=== PATIENT | female | born 1950 | race Caucasian/White ===

== ENCOUNTER → 2017-09-11 09:38 | Outpatient (CLI) | payer MEDICARE, BC, SELFPAY ==
--- NOTE | 2017-09-11 09:51 | XR_ITS ---
EXAM: XR lumbar spine 2-3V HISTORY: ITS.REASON: LOW BACK PAIN ORDERING PHYSICIAN: Jonn Fishman PATIENT AGE: 66 years COMPARISON: 12/08/2015 FINDINGS: Study is very limited as the patient could not lie flat and had to be done in the patient will care. The lumbosacral junction is not well delineated and the AP view is underpenetrated. On the lateral view there is normal alignment from L1 to L5 with no obvious acute fracture. Frontal view is very limited with mild lumbar curvature convex left. Cannot exclude underlying bony lesions on the frontal view. IMPRESSION: Very limited exam as described above with normal alignment from L1 to L5 and mild lumbar curvature convex left Consider repeating exam when patient can lie down for the exam
== END ==
PROVIDERS: PCP Family Medicine; Visit Provider Neurological Surgery
DX: M54.5 Low back pain (principal)
CPT/HCPCS: 72100

== ENCOUNTER 2017-09-22 19:29 | Emergency (ER) | payer MEDICARE, BC, SELFPAY ==
[2017-09-22 19:29] VITALS: BP 155/87; PULSE 78; RESP 20; TEMP 36.6; O2SAT 96; BMI 38.2
--- NOTE | 2017-09-22 19:39 | XR_ITS ---
XR chest 2V HISTORY: ITS.REASON: WEAKNESS ORDERING PHYSICIAN: Bhakti Schaeffer MD PATIENT AGE: 66 years COMPARISON: 12 or 15 FINDINGS: The cardiomediastinal silhouette and pulmonary vascularity are within normal limits. The lungs are clear without infiltrates, suspicious nodules, or pleural effusions. No acute bony abnormalities. IMPRESSION: No change with no acute finding
[2017-09-22 20:09] LABS: Microscopic, Urine URINE MICROSCOPIC (MICROSCOPIC)
[2017-09-22 20:11] LABS: Appearance,Urine CLEAR (Clear); Blood, Urine Negative (Negative); Color,Urine YELLOW (Yellow); Glucose,Urine (UA) Negative (Negative); Ketones,Urine TRACE (Negative); Leukocyte Esterase,Urine Negative (Negative); Nitrate,Urine Negative (Negative); Protein,Urine Negative (Negative); Specific Gravity, Urine 1.025 (1.005-1.030); Urobilinogen,Urine 0.2 EU/dl (0.2)
[2017-09-22 20:12] LABS: Basophils % 0.3 % (0.1-2.0); Eosinophils # 0.3 K/mm3 (0.0-0.4); Eosinophils % 4.9 % (0.1-12.0); Hematocrit 44.9 % (37.0-47.0); Hemoglobin 13.3 g/dL (12.2-16.2); Lymphocytes # 0.7 K/mm3 (0.7-4.5); Lymphocytes % 12.8 K/mm3 (10-50); Mean Corpuscular HGB Conc 29.7 g/dL (31.8-35.4); Mean Corpuscular Hemoglobin 28.9 pg (27.0-31.2); Mean Corpuscular Volume 97.3 fl (81-99); Mean Platelet Volume 7.1 fl (7.4-10.4); Monocytes # 0.4 K/mm3 (0.1-1.0); Monocytes % 7.5 % (1.7-9.3); Neutrophils # 3.8 K/mm3 (1.8-7.8); Neutrophils % 74.4 % (37.0-80.0); Platelet Count 310 K/mm3 (142-424); Red Blood Count 4.62 M/mm3 (4.20-5.40); Red Cell Distribution Width 14.3 % (11.5-17.5); White Blood Count 5.1 K/mm3 (4.8-10.8)
[2017-09-22 20:19] LABS: Amorphous Sediment,Urine Trace /lpf; Bilirubin,Urine Negative (Negative); Mucus,Urine 4+ /lpf
[2017-09-22 20:26] LABS: Lactic Acid 0.9 mmol/L (0.4-2.0)
--- NOTE | 2017-09-22 20:26 | PC.NURSE ---
pt reports to dr. becerril that she is just here to be transferred to .
[2017-09-22 20:31] LABS: Alanine Aminotransferase 20 U/L (12-78); Albumin Level 3.2 gm/dL (3.4-5.0); Albumin/Globulin Ratio 0.8 (1.1-1.8); Alkaline Phosphatase 87 U/L (46-116); Anion Gap 7.6 mEq/L (5-15); Aspartate Amino Transferase 16 U/L (15-37); Bilirubin,Total 0.4 mg/dL (0.2-1.0); Blood Urea Nitrogen 14 mg/dL (7-18); Carbon Dioxide 33 mmol/L (21.0-32.0); Chloride 103 mmol/L (98-107); Creatine Kinase 101 U/L (26-192); Creatinine Clearance Estimated 94 mL/min (0-300); Creatinine,Serum 0.38 mg/dL (0.55-1.02); Estimated Glomerular Filt Rate 170 ml/min (>60); GFR (African American) 206 ML/MIN (>60); Glucose 106 mg/dL (74-106); Potassium 3.6 mmoL/L (3.5-5.1); Sodium 140 mmol/L (136-145); Total Protein,Serum 7.2 gm/dL (6.4-8.2); Troponin I < 0.02 ng/ml (0.00-0.06)
--- NOTE | 2017-09-22 20:32 | [facility].EDWEAK ---
ED Disposition Clinical Impression: Weakness generalized Disposition: Home, Self-Care Condition on Discharge: Good Additional Instructions: call your neuro and pcp in am Prescriptions: Ketorolac Tromethamine [Toradol 10mg tablet] 10 mg PO Q6H 5 Days #20 tab Referrals: Norm Solis MD [Primary Care Provider] - - Critical Care Critical Care Time: No Attestation: On 09/22/17, the high probability of a clinically significant, sudden or life threatening deterioration of the following system(s) required my full and direct attention, intervention and personal management. The time I documented below is in addition to time spent performing reported procedures but includes the following listed in this critical care notation. Medical Decision Making - Medical Records Medical records reviewed: Yes: I reviewed the patient's medical records. - Jacek Inquiry Pt receiving controlled substance: No Vital Signs: 09/22/17 19:29 Temperature 97.9 F Temperature Source Oral Pulse Rate [Right Radial] 78 Respiratory Rate 20 Blood Pressure [Right Arm] 155/87 Blood Pressure Mean [Right Arm] 109 02 Sat by Pulse Oximetry 96 - Lab Data Lab results reviewed: Yes: I reviewed the patient's lab results. Lab Results 09/22/17 20:00: Urine Color Yellow, Urine Appearance Clear, Urine pH 6.0, Ur Specific [place] 1.025, Urine Protein Negative, Urine Glucose (UA) Negative, Urine Ketones Trace, Urine Blood Negative, Urine Nitrate Negative, Urine Bilirubin Negative, Urine Urobilinogen 0.2, Ur Leukocyte Esterase Negative, Urine WBC 3-5, Ur Squamous Epith Cells 3-5, Amorphous Sediment Trace, Urine Mucus 4+ 09/22/17 20:00: WBC 5.1, RBC 4.62, Hgb 13.3, Hct 44.9, MCV 97.3, MCH 28.9, MCHC 29.7 L, RDW 14.3, Plt Count 310, MPV 7.1 L, Neut % (Auto) 74.4, Lymph % (Auto) 12.8, [place] % (Auto) 7.5, Eos % (Auto) 4.9, Baso % (Auto) 0.3, Neut # (Auto) 3.8, Lymph # (Auto) 0.7, [place] # (Auto) 0.4, Eos # (Auto) 0.3, Baso # (Auto) 0.0 09/22/17 20:00: Sodium 140, Potassium 3.6, Chloride 103, Carbon Dioxide 33 H, Anion Gap 7.6, BUN 14, Creatinine 0.38 L, Estimated Creat Clear 94, Estimated GFR 170, Est GFR ( Amer) 206, Glucose 106, Calcium 9.0, Total Bilirubin 0.4, AST 16, ALT 20, Alkaline Phosphatase 87, Total Creatine Kinase 101, CK-MB (CK-2) 3.4, CK-MB (CK-2) Rel Index 3.4, Troponin I < 0.02, Total Protein 7.2, Albumin 3.2 L, Globulin 4.0 H, Albumin/Globulin Ratio 0.8 L 09/22/17 20:00: Lactic Acid 0.9 09/22/17 20:00: ESR 24 09/22/17 20:00: C-Reactive Protein < 0.2, TSH 1.83, Thyroxine (T4) 12.5 09/22/17 20:00: D-Dimer 1270 H* Result diagrams: 09/22/17 20:00 09/22/17 20:00 Orders (Tests/Meds): ED MEDICATIONS Discontinued Medications Generic Name Dose Route Start Last Admin Trade Name Freq PRN Reason Stop Dose Admin Iopamidol 70 ml 09/22/17 23:10 09/22/17 23:11 [id number]; 75ml Vial IV 09/22/17 23:11 70 ml ONCE ONE Administration Ketorolac Tromethamine 30 mg 09/22/17 21:57 09/22/17 22:04 Toradol 30mg/Ml Vial IV 09/22/17 21:58 30 mg ONCE ONE Administration Sodium Chloride 10 ml 09/22/17 23:10 09/22/17 23:11 Rad-Saline Flush 10ml Syringe IV 09/22/17 23:11 10 ml ONCE ONE Administration Sodium Chloride 40 ml 09/22/17 23:10 09/22/17 23:11 Rad-Ns 50ml Vial IV 09/22/17 23:11 40 ml ONCE ONE Administration ORDERS Category Date Time Status CT Chest w/PE protocol [CT angio chest] Stat Cat Scan 09/22/17 21:[address] head/brain wo con Stat Cat Scan 09/22/17 19:39 Stop Req CXR --portable [XR chest portable] Stat Exams 09/22/17 20:35 Stop Req Blood Culture Stat Micro 09/22/17 20:00 Received - Radiology Data #1 Image(s): Chest Image Reviewed: Yes I reviewed the patient's radiology image Preliminary Findings: Normal/NAD - CT Data CT Scan: Chest Time Received: 00:[address] Reviewed: Yes: I have viewed the radiologist's interpretation Preliminary Findings: Normal/NAD -
--- NOTE | 2017-09-22 20:35 | ED_ITS ---
ED Disposition Clinical Impression: Weakness generalized Disposition: Home, Self-Care Condition on Discharge: Good Additional Instructions: call your neuro and pcp in am Prescriptions: Ketorolac Tromethamine [Toradol 10mg tablet] 10 mg PO Q6H 5 Days #20 tab Referrals: Norm Solis MD [Primary Care Provider] - - Critical Care Critical Care Time: No Attestation: On 09/22/17, the high probability of a clinically significant, sudden or life threatening deterioration of the following system(s) required my full and direct attention, intervention and personal management. The time I documented below is in addition to time spent performing reported procedures but includes the following listed in this critical care notation. Medical Decision Making - Medical Records Medical records reviewed: Yes: I reviewed the patient's medical records. - Jacek Inquiry Pt receiving controlled substance: No Vital Signs: 09/22/17 19:29 Temperature 97.9 F Temperature Source Oral Pulse Rate [Right Radial] 78 Respiratory Rate 20 Blood Pressure [Right Arm] 155/87 Blood Pressure Mean [Right Arm] 109 02 Sat by Pulse Oximetry 96 - Lab Data Lab results reviewed: Yes: I reviewed the patient's lab results. Lab Results 09/22/17 20:00: Urine Color Yellow, Urine Appearance Clear, Urine pH 6.0, Ur Specific [place] 1.025, Urine Protein Negative, Urine Glucose (UA) Negative, Urine Ketones Trace, Urine Blood Negative, Urine Nitrate Negative, Urine Bilirubin Negative, Urine Urobilinogen 0.2, Ur Leukocyte Esterase Negative, Urine WBC 3-5, Ur Squamous Epith Cells 3-5, Amorphous Sediment Trace, Urine Mucus 4+ 09/22/17 20:00: WBC 5.1, RBC 4.62, Hgb 13.3, Hct 44.9, MCV 97.3, MCH 28.9, MCHC 29.7 L, RDW 14.3, Plt Count 310, MPV 7.1 L, Neut % (Auto) 74.4, Lymph % (Auto) 12.8, [place] % (Auto) 7.5, Eos % (Auto) 4.9, Baso % (Auto) 0.3, Neut # (Auto) 3.8 , Lymph # (Auto) 0.7, [place] # (Auto) 0.4, Eos # (Auto) 0.3, Baso # (Auto) 0.0 09/22/17 20:00: Sodium 140, Potassium 3.6, Chloride 103, Carbon Dioxide 33 H, Anion Gap 7.6, BUN 14, Creatinine 0.38 L, Estimated Creat Clear 94, Estimated GFR 170, Est GFR ( Amer) 206, Glucose 106, Calcium 9.0, Total Bilirubin 0.4, AST 16, ALT 20, Alkaline Phosphatase 87, Total Creatine Kinase 101, CK-MB ( CK-2) 3.4, CK-MB (CK-2) Rel Index 3.4, Troponin I < 0.02, Total Protein 7.2, Albumin 3.2 L, Globulin 4.0 H, Albumin/Globulin Ratio 0.8 L 09/22/17 20:00: Lactic Acid 0.9 09/22/17 20:00: ESR 24 09/22/17 20:00: C-Reactive Protein < 0.2, TSH 1.83, Thyroxine (T4) 12.5 09/22/17 20:00: D-Dimer 1270 H* Result diagrams: 09/22/17 20:00 09/22/17 20:00 Orders (Tests/Meds): ED MEDICATIONS Discontinued Medications Generic Name Dose Route Start Last Admin Trade Name Freq PRN Reason Stop Dose Admin Iopamidol 70 ml 09/22/17 23:10 09/22/17 23:11 [id number]; 75ml Vial IV 09/22/17 23:11 70 ml ONCE ONE Administration Ketorolac Tromethamine 30 mg 09/22/17 21:57 09/22/17 22:04 Toradol 30mg/Ml Vial IV 09/22/17 21:58 30 mg ONCE ONE Administration Sodium Chloride 10 ml 09/22/17 23:10 09/22/17 23:11 Rad-Saline Flush 10ml Syringe IV 09/22/17 23:11 10 ml ONCE ONE Administration Sodium Chloride 40 ml 09/22/17 23:10 09/22/17 23:11 Rad-Ns 50ml Vial IV 09/22/17 23:11 40 ml ONCE ONE Administration ORDERS
[2017-09-22 21:10] LABS: CKMB Relative Index 3.4 U/L (0-4.0); Creatine Kinase MB 3.4 ng/ml (0.0-3.6)
[2017-09-22 21:11] LABS: T4 (Thyroxine) 12.5 ug/dl (4.7-13.3); Thyroid Stimulating Hormone 1.83 uIU/ml (0.358-3.740)
[2017-09-22 21:12] LABS: C-Reactive Protein < 0.2 mg/L (0.0-0.9)
[2017-09-22 21:32] LABS: D-Dimer 1270 (0-400)
--- NOTE | 2017-09-22 21:32 | PC.NURSE ---
elevated ddimer reported to dr. becerril at this time. awaiting further orders.
--- NOTE | 2017-09-22 21:55 | CT_ITS ---
CT angio chest HISTORY: Shortness of breath ITS.REASON: sob ORDERING PHYSICIAN: Bhakti Schaeffer MD PATIENT AGE: 66 years TECHNIQUE: Axial images obtained following the administration of 75 mL of Isovue 370 . Sagittal, and coronal reformatted images are also generated and reviewed. All CT scans at the facility use one or more dose reduction, viz: automated exposure control; ma/kV adjustment per patient size (including targeted exams where dose is matched to indication; i.e. head); or iterative reconstruction technique. COMPARISON: None FINDINGS: No mediastinal or hilar mass or adenopathy. No evidence of pulmonary embolus or aortic aneurysm. The pulmonary arteries are somewhat prominent with a pulmonary artery aorta ratio of slightly greater than 1. There is borderline cardiomegaly. No lobar consolidation or collapse. Respiratory motion artifact somewhat obscures fine detail. No suspicious pulmonary nodules. Upper abdominal images show cholelithiasis and prior gastric bypass surgery. There is mild thickening of the right adrenal gland nonspecific. Bilateral parapelvic renal cysts are present. No acute bony anomalies. IMPRESSION: 1. No evidence of pulmonary embolus or aortic aneurysm. 2. No acute pulmonary findings. 3. Mild prominence of the pulmonary arteries nonspecific but may be seen pulmonary artery hypertension 4. Cholelithiasis
[2017-09-22 22:11] LABS: Erythrocyte Sedimentation Rate 24 mm/hr (0-30)
--- NOTE | 2017-09-22 22:16 | PC.NURSE ---
pt to ct
--- NOTE | 2017-09-22 23:19 | PC.NURSE ---
Dr. Coronel spoke with Dr fried.
--- NOTE | 2017-09-22 23:50 | PC.NURSE ---
Called for Hospitalist , Dr. Sung to call back.
--- NOTE | 2017-09-23 00:16 | PC.NURSE ---
Dr. Coronel spoke with Dr Sung.
--- NOTE | 2017-09-23 00:19 | PC.NURSE ---
Dr Coronel speaking with Neurologist at [place]
[2017-09-23 01:10] VITALS: BP 149/93; PULSE 90; RESP 16; TEMP 36.6; O2SAT 96
== END 2017-09-23 01:10 | disposition home or self-care (01) ==
PROVIDERS: Emergency Medicine; Emergency Provider Emergency Medicine; Family Provider Family Medicine; PCP Family Medicine
DX: R53.1 Weakness (principal); R06.02 Shortness of breath; Z88.2 Allergy status to sulfonamides; Z88.6 Allergy status to analgesic agent
CPT/HCPCS: 71046; 71275; 80053; 81001; 82550; 82553; 83605; 84436; 84443; 84484; 85025; 85378; 85651; 86140; 87040; 93005; 96374; 99283; Q9967